=== PATIENT | female | born 1975 | race Caucasian/White ===

== ENCOUNTER 2022-07-17 20:44 | Emergency (ER) | payer OTHER ==
[~2022-07-17] VITALS: Ht 162.6 cm; Wt 56.2 kg
[2022-07-18] MEDS ORDERED: Flagyl500 MG PO (10:45)
[2022-07-18] MEDS ORDERED: Pepcid20 MG PO (10:45)
== END 2022-07-17 23:49 | disposition home or self-care (01) ==
LOC: ER 20:44
DX: R68.83 Chills (without fever) (principal)
CPT/HCPCS: 99283